=== PATIENT | female | born 1950 | race Caucasian/White ===

== ENCOUNTER → 2017-02-07 | Day surgery (SDC) | payer MEDICARE, OTHER ==
[~2017-02-07] MED LIST: BUPIVACAINE/EPINEPHRINE 0.5% PF 10 ML VIAL ONE; BUPIVACAINE/EPINEPHRINE 0.5% PF 30 ML VIAL ONE; ISOSULFAN BLUE 50 MG/5 ML VIAL SQ ONE; LACTATED RINGER'S 1000 ML INJ 1,000 ML ONE; MIDAZOLAM HCL 2 MG/2 ML VIAL ONE; ONDANSETRON HCL 4 MG/2 ML VIAL IV PUSH ONE; PROPOFOL 200 MG/20 ML AMP IV ONE; ceFAZolin INJ 1,000 MG VIAL ONE
--- NOTE | 2017-02-07 17:00 | TN ---
cc: ANGELICA LORD M.D. DATE OF SURGERY 02/07/2017 PREOPERATIVE DIAGNOSIS Left breast cancer. POSTOPERATIVE DIAGNOSIS Left breast cancer. PROCEDURE PERFORMED 1. Needle-localized left breast lumpectomy. 2. Injection and excision sentinel lymph node left axilla x2. SURGEON Angelica Lord [employer]OWERHOU[employer]CH[employer]IC APPRENTICE JORDAN Rangel ANESTHESIA General LMA COMPLICATIONS None. INDICATION FOR PROCEDURE Ms. Meneses is a pleasant 66-year-old female who noted some skin retraction in her left breast. She underwent mammogram and ultrasound which confirmed a mass. This was biopsied and found to be a breast cancer. The patient underwent MRI. No additional lesions were noted. She was offered lumpectomy versus mastectomy and sentinel node excision. The patient elected to have lumpectomy. Risks and benefits of needle-localized left breast lumpectomy with sentinel node excision was discussed with her and her , they were agreeable. INTRAOPERATIVE FINDINGS Mather node #1 was blue and had a count 4720. Mather node #2 was also blue and found to have found have a 10-second count of 2637. No significant activity was noted be on these two nodes and there was no blue dye noted beyond these two nodes. Also there is no palpable nodes in the left axilla. DETAILS The patient was identified, brought the operating room and placed supine on the operating table. After adequate general anesthesia was achieved with LMA, the anterior left chest and breast was prepped and draped in standard surgical fashion. 5 cc of isosulfan blue was injected in the periareolar space as well as in the 5 o'clock position of the left breast where the patient had a previous wire localization. This was then massaged in the breast. The left axilla was then checked with the probe and significant activity was found. Radiology had marked the area of the approximate node. 0.25% Marcaine was injected and a transverse incision was made. Dissection proceeded in the axilla proper using electrocautery Bovie. Immediately we encountered an enlarged blue node which was grasped with Allis clamp and dissected from surrounding tissue using electrocautery Bovie. This node was excised and labeled sentinel node number one. It was found have a 10-second count 4270. Just superior to this node was a second blue node. Again Allis clamp was used to grasp the node and dissect it free from surrounding tissue using electrocautery Bovie. This node was excised and found have a count of 2637. Once the two nodes were excised the activity in the axilla dropped off significantly. There was no significant activity noted with the probe. Next by direct visualization I could see no other blue channels or blue nodes. By manual palpation I could not palpate any concerning adenopathy. At this point I felt comfortable that we did have the sentinel nodes that were localized preoperatively. The wound was irrigated out normal saline solution. Wound was injected with 10 mL of 0.25% Marcaine and closed in two layers using a 3-0 and 4-0 Vicryl. Attention was now directed to the left breast. The patient had a wire localization from a lateral approach in the lower outer quadrant of the left breast. 0.25% Marcaine was injected. The patient's approximate area of skin retraction was marked. Elliptical skin incision was used to excise the overlying skin. Subcutaneous flaps were then raised in all directions with generous margins. Dissection proceeded down posteriorly to the pectoral fascia. Pectoral fascia was identified and the breast tissue was dissected up off the pectoral fascia from medial to lateral. The specimen was then excised after the wire was transected. Specimen was palpated and found have generous margins in all directions all the way to the base of wire. Specimen sent to radiology where Dr. Irwin imaged it and felt the specimen was well-centered with generous margins in all directions. Specimen sent to pathology for analysis. Next, the wound was copiously irrigated with normal saline solution. By palpation we had excised all of the breast tissue from about 4 o'clock to 7 o'clock in the lower breast. As stated posteriorly we went all the way down to the pectoral fascia. Wound was copiously irrigated with normal saline solution. Wound was then closed in two layers using a 3-0 and 4-0 Vicryl. Wound was then injected with 20 mL of 0.25% Marcaine. The patient tolerated the procedure well, was awakened, brought to recovery in stable condition. Please note the [facility] personal assistant was medically necessary due to the complexity of the procedure and her extensive surgical knowledge and skills. She also has knowledge of my surgical technique. She was scrubbed for the entire procedure. Angelica MD BLANE Lord/BIRGIT /4:30 PM /4:44 PM ENO
== END | disposition home or self-care (01) ==
LOC: ESDC 09:29
PROVIDERS: ATTEND Surgery Trauma Surgery
DX: C50.912 Malignant neoplasm of unspecified site of left female breast (principal)
CPT/HCPCS: 00400; 01610; 19125; 38525; 38792; 88307; 88341; 88342; J0690; J2250; J2405; J3010; J7120; Q9968